=== PATIENT | male | born 1940 | race Caucasian/White ===

== ENCOUNTER 2023-11-11 08:58 | Emergency (ER) | payer MEDICARE ==
[~2023-11-11] VITALS: Ht 177.8 cm; Wt 74.8 kg
[~2023-11-11 08:58] MED LIST: ADVAIR DISK1 INH; IMODIUM2 MG PO; MAGNESIUM SULFATE PO; POTASSIUM SULFATE PO; SODIUM SULFATE PO
[2023-11-11 09:13] VITALS: BP 162/91
[2023-11-11 09:31] VITALS: BP 146/89
[2023-11-11 10:00] VITALS: BP 139/88
[2023-11-11 10:31] VITALS: BP 148/90
[2023-11-11] MEDS ORDERED: ADVAIR DISKU IN (10:32)
[2023-11-11 10:42] VITALS: BP 148/90
== END 2023-11-11 10:51 | disposition home or self-care (01) ==
LOC: ED 08:58
DX: J45.909 Unspecified asthma, uncomplicated (principal)